=== PATIENT | female | born 1980 | race Caucasian/White ===

== ENCOUNTER 2020-04-19 00:06 | Emergency (ER) | payer BC ==
[~2020-04-19] VITALS: Ht 165.1 cm; Wt 49.9 kg
--- NOTE | 2020-04-19 00:16 | NUR ---
Patient to ER bed 6 to gown for evaluation. Side rails up. Report given to DAYANA BOOKER .
--- NOTE | 2020-04-19 00:18 | NUR ---
Patient came to ER with family. C/o abdominal pain, nausea and vomitting x 3 days. Per patient reported, lower abdominal pain, vomitting x 7 times, last BM 4 days ago. A/O,X4, lower abdominal pain, pain rate 10/10, nausea, vomitting, place patient on chairman & ceo and pulse ox.
[2020-04-19 00:19] VITALS: BP_SYST 173
--- NOTE | 2020-04-19 00:24 | NUR ---
ER at bedside examining patient.
[2020-04-19] MEDS ORDERED: ONDANSETRON HCL 4 MG/2 ML VIAL IVP ONE (00:30)
[2020-04-19] MEDS ORDERED: NACL 0.9% 1,000 ML IV ONE (00:30)
[2020-04-19] MEDS ORDERED: KETOROLAC TROMETHAMINE 30 MG VIAL IVP ONE (00:30)
--- NOTE | 2020-04-19 00:34 | NUR ---
# 20 gauge angiocath placed to LAC. Use of asceptic technique. Opsite placed over site. Blood return noted. Blood for lab drawn from site. Flushed with 10 cc of normal saline. No evidence of infiltration noted. Patient tolerated well.
[2020-04-19 00:47] LABS: LYMPHOCYTES # (AUTO) 1.1 K/uL (1.0-5.5); PLATELET COUNT (AUTO) 211 K/uL (130-430)
[2020-04-19 00:52] LABS: BASOPHILS % (AUTO) 0.3 % (0.0-2.0); HEMATOCRIT 53.8 % (36-48); HEMOGLOBIN 18.6 g/dL (12.0-16.0); LYMPHOCYTES % (AUTO) 8.9 % (20.5-51.5); MEAN CORPUSCULAR HEMOGLOBIN 35 pg (27-31); MEAN CORPUSCULAR HGB CONC 35 % (32-36); MEAN CORPUSCULAR VOLUME 100 fL (79.0-98.0); NEUTROPHILS # (AUTO) 10.3 K/uL (1.8-7.7); NEUTROPHILS % (AUTO) 82.8 % (40.0-70.0); RED BLOOD CELL COUNT(AUTO) 5.39 MIL/uL (4.2-6.2); RED CELL DISTRIBUTION WIDTH 13.3 % (9.0-15.0); WHITE BLOOD COUNT (AUTO) 12.5 K/uL (4.8-10.8)
[2020-04-19 00:59] LABS: CALCIUM 10.2 mg/dL (8.4-11.0); CREATININE 1.05 mg/dL (0.55-1.30); POTASSIUM 3.5 mmol/L (3.5-5.1)
[2020-04-19 01:05] LABS: ALBUMIN 5.1 g/dL (3.4-4.8); TOTAL BILIRUBIN 0.8 mg/dL (0.0-1.0)
[2020-04-19 01:23] LABS: CANNABINOID, URINE POSITIVE (NEG <=50)
[2020-04-19 01:24] LABS: BARBITURATE, URINE NEGATIVE (NEG <=200); BENZODIAZEPINE, URINE NEGATIVE (NEG <=150); COCAINE, URINE NEGATIVE (NEG <=150); METHAMPHETAMINES SCREEN,URINE NEGATIVE (NEG <=500); OPIATE, URINE NEGATIVE (NEG <=100); PHENCYCLIDINE SCREEN,URINE NEGATIVE (NEG <=25); UR TRICYCLIC ANTIDEPRESSANTS NEGATIVE (NEG <=300); URINE AMPHETAMINE NEGATIVE (NEG <=500); URINE METHADONE NEGATIVE (NEG <=200); URINE OXYCODONE SCREEN NEGATIVE (NEG <=100); URINE PROPOXYPHENE SCREEN NEGATIVE (NEG <=300)
--- NOTE | 2020-04-19 02:32 | NUR ---
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 Patient tolerated well.
[2020-04-19 02:42] LABS: BILIRUBIN,URINE 2+ (NEGATIVE); BLOOD, URINE 1+ (NEGATIVE); CLARITY/URINE CLOUDY (CLEAR); COLOR,URINE YELLOW (YELLOW); GLUCOSE,URINE NEGATIVE (NEGATIVE); KETONES,URINE 3+ (NEGATIVE); LEUKOCYTE ESTERASE ,URINE NEGATIVE (NEGATIVE); NITRITE, URINE NEGATIVE (NEGATIVE); PH,URINE 6.5 (5.0-8.0); PROTEIN URINE 3+ (NEGATIVE)
[2020-04-19 02:49] LABS: BACTERIA,URINE FEW /HPF (None Seen); WBC,URINE 0-3 /HPF (0-3)
[2020-04-19 02:50] LABS: URINE AMORPHOUS PHOSPHATES 3+ /HPF (None Seen)
[2020-04-19] MEDS ORDERED: cefTRIAXone 1 GM in D5W 50 ML IV ONE (03:00)
[2020-04-19] MEDS ORDERED: cefTRIAXone 1 GM VIAL ONE (03:26)
--- NOTE | 2020-04-19 03:42 | NUR ---
Patient given written and verbal discharge instructions and verbalizes understanding. ER MD discussed with patient the results and treatment provided. Patient in stable condition. ID arm band removed. IV catheter removed intact and dressing applied, no active bleeding. Rx of Keflex, Miralax and Zofran given. Patient educated on pain management and to follow up with PMD. Pain Scale 3/10. Opportunity for questions provided and answered. Medication side effect fact sheet provided.
[2020-04-19 03:43] VITALS: BP_SYST 143
== END 2020-04-19 03:43 | disposition home or self-care (01) ==
LOC: SED 00:06
DX: K59.00 Constipation, unspecified (principal); R10.30 Lower abdominal pain, unspecified; F12.90 Cannabis use, unspecified, uncomplicated; Z71.6 Tobacco abuse counseling
CPT/HCPCS: 36415; 74018; 74176; 80053; 80307; 81000; 81025; 83605; 85025; 96361; 96365; 96375; 99285; J0696; J1885; J2405; J7030

== ENCOUNTER 2020-04-20 11:33 | Emergency (ER) | payer BC ==
[~2020-04-20] VITALS: Ht 165.1 cm; Wt 49.9 kg
[2020-04-20 11:36] VITALS: BP_SYST 190
--- NOTE | 2020-04-20 11:41 | NUR ---
Patient to ER bed 06 to gown for evaluation. Side rails up.
--- NOTE | 2020-04-20 11:42 | NUR ---
Pt brought by self , A7Ox4, ambulatory , pt presents to ER with abdominal pain, N/V/D , pt states she was recently diagnosed with colitis/gallstones ,states pain is worsening, pt afebrile, skin pink and warm, cap refill <3, VSS, respirations even and unlabored.
--- NOTE | 2020-04-20 11:52 | NUR ---
ER Dr. Vasquez at bedside examining patient.
[2020-04-20] MEDS ORDERED: KETOROLAC TROMETHAMINE 30 MG VIAL IVP ONE (12:00)
[2020-04-20] MEDS ORDERED: NACL 0.9% 1,000 ML IV ONE (12:00)
[2020-04-20] MEDS ORDERED: PROCHLORPERAZINE EDISYLATE 10 MG/2 ML VIAL IVP ONE (12:00)
[2020-04-20 12:29] LABS: BASOPHILS % (AUTO) 0.3 % (0.0-2.0); EOSINOPHILS % (AUTO) 0.1 % (0.0-4.0); HEMATOCRIT 47.2 % (36-48); HEMOGLOBIN 16.4 g/dL (12.0-16.0); LYMPHOCYTES # (AUTO) 0.9 K/uL (1.0-5.5); LYMPHOCYTES % (AUTO) 11.3 % (20.5-51.5); MEAN CORPUSCULAR HEMOGLOBIN 34 pg (27-31); MEAN CORPUSCULAR HGB CONC 35 % (32-36); MEAN CORPUSCULAR VOLUME 98 fL (79.0-98.0); MONOCYTES # (AUTO) 0.8 K/uL (0.0-1.0); MONOCYTES % (AUTO) 9.8 % (1.7-9.3); NEUTROPHILS # (AUTO) 6.4 K/uL (1.8-7.7); NEUTROPHILS % (AUTO) 78.5 % (40.0-70.0); PLATELET COUNT (AUTO) 174 K/uL (130-430); RED BLOOD CELL COUNT(AUTO) 4.81 MIL/uL (4.2-6.2); RED CELL DISTRIBUTION WIDTH 12.8 % (9.0-15.0); WHITE BLOOD COUNT (AUTO) 8.1 K/uL (4.8-10.8)
--- NOTE | 2020-04-20 12:37 | NUR ---
Pt resting in gurney. A/O. Ambulated to bathroom. Tolerated well.
[2020-04-20 12:46] LABS: CALCIUM 9.2 mg/dL (8.4-11.0); CREATININE 0.71 mg/dL (0.55-1.30)
[2020-04-20 12:52] LABS: ALBUMIN 4.6 g/dL (3.4-4.8); TOTAL BILIRUBIN 0.7 mg/dL (0.0-1.0)
[2020-04-20 12:57] LABS: POTASSIUM 2.7 mmol/L (3.5-5.1)
[2020-04-20] MEDS ORDERED: POTASSIUM CHLORIDE 20 MEQ TAB.PRT.SR PO ONE (13:00)
[2020-04-20] MEDS ORDERED: traMADol HCL HCL 50 MG TABLET (ULTRAM) PO ONE (13:15)
--- NOTE | 2020-04-20 13:38 | NUR ---
pt awake and alert. Medicated for pain as ordered. VSS
[2020-04-20 13:49] VITALS: BP_SYST 156
--- NOTE | 2020-04-20 13:50 | NUR ---
Patient given written and verbal discharge instructions and verbalizes understanding. ER MD discussed with patient the results and treatment provided. Patient in stable condition. ID arm band removed. IV catheter removed intact and dressing applied, no active bleeding. Rx of Compazine, Tramadol, and K dur given. Patient educated on pain management and to follow up with PMD. Pain Scale 0/10. Opportunity for questions provided and answered. Medication side effect fact sheet provided.
== END 2020-04-20 13:50 | disposition home or self-care (01) ==
LOC: SED 11:33
DX: E87.6 Hypokalemia (principal); R10.84 Generalized abdominal pain
CPT/HCPCS: 36415; 80053; 81002; 81025; 83690; 85025; 96361; 96374; 96375; 99284; J0780; J1885; J7030